=== PATIENT | male | born 1960 | race American Indian/Alaskan Native ===

== ENCOUNTER 2019-12-12 06:05 | Day surgery (SDC) | payer OTHER ==
[~2019-12-12 06:05] MED LIST: GABAPENTIN 300 MG CAP PO SCH; LACTATED RINGERS 1,000 ML IV SCH; MIDAZOLAM 2 MG/2 ML INJ IV SCH
[2019-12-12] MEDS ORDERED: BACTERIOSTATIC SODIUM CHLORIDE 0.9% 30 ML VIAL INFILTRATI ONE (06:15)
[2019-12-12] MEDS ORDERED: LIDOCAINE MPF (2%) 20 MG/1 ML VIAL 5 ML ONE (06:59)
[2019-12-12] MEDS ORDERED: propofoL 200 MG/20 ML VIAL IV ONE (06:59)
[2019-12-12] MEDS ORDERED: fentaNYL 100 MCG/2 ML INJ ONE (06:59)
[2019-12-12] MEDS ORDERED: ceFAZolin/STERILE WATER 2 GM/20 ML SYRINGE IV NR (07:00)
[2019-12-12] MEDS ORDERED: fentaNYL 100 MCG/2 ML INJ IV PRN (07:19)
--- NOTE | 2019-12-12 07:19 | Anesthesia Day of Surgery ---
Anesthesia Day of Surgery - Day of Surgery Patient Examined: Yes Patient H&P Reviewed: Yes Patient is NPO: Yes
--- NOTE | 2019-12-12 07:19 | Anesthesia Consultation ---
Anesthesia Consult and Med Hx Date of service: 12/12/19 - Airway Anesthetic Teeth Evaluation: Good, Bridges (permanent bridge upper left) ROM Head & Neck: Adequate Mental/Hyoid Distance: Adequate Mallampati Class: Class II Intubation Access Assessment: Probably Good - Pulmonary Exam CTA: Yes - Cardiac Exam Cardiac Exam: RRR - Pre-Operative Health Status ASA Pre-Surgery Classification: ASA3 Proposed Anesthetic Plan: General - Pulmonary Hx Smoking: No Hx Respiratory Symptoms: No Hx Sleep Apnea: No (sleep study pending) - Cardiovascular System Hx Hypertension: Yes Hx Heart Attack/AMI: No Hx Cardia Arrhythmia: No - Central Nervous System Hx Neuromuscular Disorder: No CVA: Yes (TIA 5 yrs ago; off ASA x5 days) Hx Back Pain: Yes (WITH OCC PAIN LEFT LEG) Hx Psychiatric Problems: Yes (PTSD) - Gastrointestinal Hx Gastroesophageal Reflux Disease: No - Endocrine Hx Renal Disease: No Hx Liver Disease: No Hx Non-Insulin Dependent Diabetes: Yes ("pre-DM") Hx Thyroid Disease: No - Other Systems Hx Obesity: No - Additional Comments Anesthesia Medical History Comments: No hx anesthetic complications.
[2019-12-12] MEDS ORDERED: BUPIVACAINE/PF (0.25%) 2.5 MG/ML 30 ML VIAL INFILTRATI ONE (07:32)
[2019-12-12] MEDS ORDERED: KETOROLAC 30 MG/1 ML INJ ONE (07:59)
[2019-12-12] MEDS ORDERED: dexAMETHasone 20 MG/5 ML VIAL ONE (07:59)
[2019-12-12] MEDS ORDERED: ONDANSETRON 4 MG/2 ML INJ ONE (07:59)
[2019-12-12] MEDS ORDERED: BUPIVACAINE/PF (0.25%) 2.5 MG/ML 10 ML VIAL INFILTRATI ONE (08:23)
--- NOTE | 2019-12-12 08:40 | Short Stay Summary ---
Short Stay Documentation Date of service: 12/12/19 - History H&P: obtained from office - Allergies and Medications Current Medications: Allergies hepatitis A virus vaccine Allergy (Verified 12/08/19 16:09) Hives hepatitis B virus vaccine Allergy (Verified 12/08/19 16:09) Hives Home Medications Medication Instructions Recorded Confirmed Last Taken Type Aspirin 325 mg PO QDAY 12/08/19 12/12/19 1 Week Ago History ~12/05/19 Oxybutynin Xl [Ditropan Xl] 15 mg PO DAILY 12/08/19 12/08/19 12/11/19 History Pravastatin [Pravachol] 40 mg PO QHS 12/08/19 12/08/19 12/11/19 History Tamsulosin [Flomax] 0.4 mg PO QDAY 12/08/19 12/08/19 12/11/19 History Voltaren 1 dose TP PRN PRN 12/08/19 12/12/19 3 Days Ago History ~12/09/19 amLODIPine [Norvasc] 10 mg PO DAILY 12/08/19 12/12/19 12/12/19 04:00 History metFORMIN [Glucophage] 500 mg PO BID 12/08/19 12/08/19 12/11/19 History Active Medications Cefazolin Sodium (Ancef/Sterile Water 2 Gm/20 Ml) 2 gm IV PREOP NR Stop: 12/12/19 16:00 Fentanyl (Sublimaze) 50 mcg IV Q5MIN PRN PRN Reason: Pain , Severe (7-10) Stop: 12/12/19 22:00 Gabapentin (Gabapentin) 300 mg PO PREOP MARIAA Last Admin: 12/12/19 07:12 Dose: 300 mg Documented by: Lactated Ringer's (Lactated Ringers) 1,000 mls @ 100 mls/hr IV DIRECT MARIAA Last Admin: 12/12/19 07:00 Dose: 100 mls/hr Documented by: Midazolam HCl (Versed) 2 mg IV PREOP MARIAA Last Admin: 12/12/19 07:25 Dose: 2 mg Documented by: - Brief post op/procedure progress note Date of procedure: 12/12/19 Pre-op diagnosis: phimosis Post-op diagnosis: same Procedure: circ Anesthesia: GETA Surgeon: ALEXIS WEISS Estimated blood loss: minimal Pathology: list (foreskin) Condition: stable - Hospital course Hospital course: ultram & norco on chart - Disposition Condition at discharge: Stable Disposition: DC-01 TO HOME OR SELFCARE Short Stay Discharge Plan Follow up with: [facility] [Primary Care Provider] - 7 Days
--- NOTE | 2019-12-12 08:52 | Operative Report ---
PREOPERATIVE DIAGNOSIS: Phimosis. POSTOPERATIVE DIAGNOSIS: Phimosis. PROCEDURE: Circumcision. SURGEON: Anthony Armenta MD. ANESTHESIA: General. ESTIMATED BLOOD LOSS: Minimal. FLUIDS: Crystalloid. COMPLICATIONS: No complications. INDICATIONS: This patient is a 59-year-old gentleman with difficulty retracting foreskin and irritation. Examination was consistent with phimosis. Risks, benefits, and complications were explained. The patient agreed to proceed with surgical intervention. DESCRIPTION OF PROCEDURE: The patient was taken to the operative suite, placed in a supine position. After adequate general anesthesia was placed in a supine position, prepped and draped in a sterile fashion. Foreskin was marked at the level of the coronal ridge. Dorsal and ventral slit was made. Foreskin was circumferentially removed and sent for routine pathologic evaluation. Shaft skin was retracted. Adequate hemostasis was achieved. Proximal and distal shaft skin was reapproximated, and closed with 3-0 chromic in an interrupted fashion. Xeroform gauze, Amanda and Coban was placed as a dressing. The patient tolerated the procedure well, was extubated and taken to the recovery room. He will go home on [employer] [place], and follow up in the office. JOB# [id number] MO/GIOVANNI
[2019-12-12 09:07] VITALS: BP 133/82
[2019-12-12] MEDS ORDERED: HYDROcodone/ACETAMINOPHEN 5-325 MG TAB PO PRN (09:27)
--- NOTE | 2019-12-12 19:14 | Post Anesthesia Evaluation ---
- Post Anesthesia Evaluation Patient Participated: Yes Airway Patent: Yes Stable Respiratory Function: Yes Nausea/Vomiting: No Temp > 96.8F: Yes Pain Manageable: Yes Adequeate Hydration: Yes Anesthesia Complications: No
== END 2019-12-12 06:06 | disposition home or self-care (01) ==
LOC: OR 06:05
PROVIDERS: ATTEND Urology
DX: N47.1 Phimosis (principal); I10 Essential (primary) hypertension; E78.00 Pure hypercholesterolemia, unspecified; N40.0 Benign prostatic hyperplasia without lower urinary tract symptoms; M19.90 Unspecified osteoarthritis, unspecified site; F43.10 Post-traumatic stress disorder, unspecified; E11.9 Type 2 diabetes mellitus without complications; Z79.899 Other long term (current) drug therapy; Z79.82 Long term (current) use of aspirin; Z79.84 Long term (current) use of oral hypoglycemic drugs; Z98.890 Other specified postprocedural states
CPT/HCPCS: 54161; 82962; 88304; J0690; J1100; J1885; J2250; J2405; J2704; J3010; J7120; 88302

== ENCOUNTER 2019-12-22 11:00 | Outpatient (CLI) | payer OTHER | END 2019-12-22 11:01 | disposition home or self-care (01) | LOC: SLR 11:00 | PROVIDERS: ATTEND Adult Companion | DX: G47.33 Obstructive sleep apnea (adult) (pediatric) (principal) | CPT/HCPCS: 95810 ==